=== PATIENT | female | born 1990 | race Caucasian/White ===

== ENCOUNTER 2021-07-16 07:45 | Inpatient (IN) | payer OTHER ==
[~2021-07-16] VITALS: Ht 152.4 cm; Wt 2.7 kg
[~2021-07-16 07:45] MED LIST: N; PRENATABS FA T1 EACH PO
[2021-07-17] MEDS ORDERED: FAMOTIDINE20 MG (09:07)
== END 2021-07-19 13:09 | disposition home or self-care (01) | DRG 785 ==
LOC: OB/GYN 07-17 05:59 → O/R 07-17 05:59 → SURH 07-17 07:00 → OB/GYN 07-17 10:18
PROVIDERS: ADMIT Obstetrics & Gynecology; ATTEND Obstetrics & Gynecology
PROC: 0UB70ZZ Excision of Bilateral Fallopian Tubes, Open Approach (ICD-10-PCS; 2021-07-17)
PROC: 0UB00ZZ Excision of Right Ovary, Open Approach (ICD-10-PCS; 2021-07-17)
PROC: 4A1HXFZ Monitoring of Products of Conception, Cardiac Rhythm, External Approach (ICD-10-PCS; 2021-07-17)
PROC: 10D00Z1 Extraction of Products of Conception, Low, Open Approach (ICD-10-PCS; principal; 2021-07-17 07:00)
DX: O65.5 Obstructed labor due to abnormality of maternal pelvic organs (principal); O34.83 Maternal care for other abnormalities of pelvic organs, third trimester; D27.0 Benign neoplasm of right ovary; O99.892 Other specified diseases and conditions complicating childbirth; O34.211 Maternal care for low transverse scar from previous cesarean delivery; O99.824 Streptococcus B carrier state complicating childbirth; Z30.2 Encounter for sterilization; Z37.0 Single live birth; Z3A.39 39 weeks gestation of pregnancy